=== PATIENT | female | born 1975 | race Caucasian/White ===

== ENCOUNTER 2016-09-12 09:30 | Emergency (ER) | payer BC ==
[~2016-09-12] VITALS: Ht 160 cm; Wt 91.0 kg
[2016-09-12 09:34] VITALS: Ht 160 cm; Wt 91.0 kg
[2016-09-12] MEDS ORDERED: SOD CHLORIDE 0.9% 1,000 ML IV STA (10:44)
[2016-09-12] MEDS ORDERED: ONDANSETRON 4 MG INJ IV STA (10:44)
[2016-09-12 11:00] LABS: URINE BLOOD (Dip) POC Trace-lysed (NEGATIVE)
[2016-09-12] MEDS ORDERED: MECLIZINE 12.5 MG TAB PO ONE (11:00)
[2016-09-12 11:20] LABS: ADD SCAN DIFF NO
[2016-09-12 11:23] LABS: BASOPHILS % 0.5 % (0.0-2.0); EOSINOPHILS # 0.1 10^3/ul (0.0-0.5); EOSINOPHILS % 0.9 % (0.0-7.0); HEMATOCRIT 45.6 % (37.0-47.0); HEMOGLOBIN 14.5 g/dl (12.0-16.0); LYMPHOCYTES % 23.1 % (15.0-51.0); MEAN CORPUSCULAR HEMOGLOBIN 27.7 pg (29.0-33.0); MEAN CORPUSCULAR HGB CONC 31.8 g/dl (32.0-37.0); MONOCYTE # 0.4 10^3/ul (0.3-0.9); MONOCYTES % 4.4 % (0.0-11.0); NEUTROPHIL # 6.1 10^3/ul (1.6-7.5); NEUTROPHILS % 70.8 % (39.0-77.0); PLATELET COUNT 284 10^3/UL (140-415); RED BLOOD COUNT 5.24 10^6/ul (4.20-5.40); RED CELL DISTRIBUTION WIDTH 13.2 % (11.5-14.5); WHITE BLOOD COUNT 8.7 10^3/ul (4.8-10.8)
[2016-09-12 11:51] LABS: CHLORIDE 99 mmol/L (97-110); POTASSIUM 3.7 mmol/L (3.5-5.1); SODIUM 141 mmol/L (135-144)
[2016-09-12] MEDS ORDERED: ACETAMINOPHEN 500 MG TAB PO STA (11:52)
[2016-09-12 11:54] LABS: ANION GAP 20 (8-16); BLOOD UREA NITROGEN 11 mg/dl (7-20); CALCIUM 9.5 mg/dl (8.4-10.2); CARBON DIOXIDE 26 mmol/L (21-31); CREATININE 0.68 mg/dl (0.44-1.00); GLUCOSE 97 mg/dl (70-220)
[2016-09-12] MEDS ORDERED: morphine 2 MG INJ IV ONE (12:00)
[2016-09-12 12:13] LABS: TROPONIN-I < 0.012 ng/ml (0.00-0.12)
[2016-09-12] MEDS ORDERED: IBUP-1542 PO (12:53)
[2016-09-12] MEDS ORDERED: NITR-58 PO (12:53)
--- NOTE | 2016-09-12 13:00 | ERD ---
ER Documentation Chief Complaint Date/Time DATE: 09/12/16 TIME: 12:55 Chief Complaint HEADCAHE , DIZZINESS , NAUSEA X 3 DAYS HPI Patient is a 41-year-old female who presents to the emergency department with numerous concerns including chest pain, headache, dizziness and nausea. Patient states her headache started 3 days ago. Patient describes the pain to be and her frontal area and radiating down the right side of her head. Patient states her current pain level is a 5 out of 10. Patient reports pain to be getting gradually worse. Patient denies sudden onset of headache. Patient states she did take Advil which did alleviate her pain. Patient reports nausea and vomiting. Patient denies any photophobia, phonophobia, loss of consciousness. Patient denies any neck pain or neck stiffness. Patient states her chest pain started this morning. Patient describes the pain to be in her left chest radiating to her left shoulder. Patient denies any shortness of breath. Patient denies any pain with deep inspiration. Patient states that she does feel as if the room is spinning. Patient denies any syncopal episodes. Denies any dysuria, diarrhea. Patient report patient does report her menstrual periods being irregular. Patient states she has been having heavy bleeding over the last few days. She denies any recent travel. No sick contacts. ROS All systems reviewed and are negative except as per history of present illness. Medications Home Meds Active Scripts Ibuprofen* (Motrin*) 600 Mg Tab, 600 MG PO Q6, #30 TAB Prov:ANGELLA PAEZ PA-C 09/12/16 Nitrofurantoin Monohyd Macrocr* (Macrobid*) 100 Mg Capsr, 100 MG PO BID for 5 Days, CAP Prov:ANGELLA PAEZ PA-C 09/12/16 Allergies Allergies: Coded Allergies: No Known Allergy (Unverified , 03/01/14) PMhx/Soc Medical and Surgical Hx: pt denies Medical Hx, pt denies Surgical Hx Hx Alcohol Use: No Hx Substance Use: No Hx Tobacco Use: No Smoking Status: Never smoker FmHx Family History: No diabetes Physical Exam Vitals Vital Signs Date Time Temp Pulse Resp B/P Pulse Ox O2 Delivery O2 Flow Rate FiO2 09/12/16 13:54 98.8 72 18 105/60 100 Room Air 09/12/16 09:34 98.8 88 18 156/88 99 Physical Exam GENERAL: Well-developed, well-nourished female. Appears in no acute distress. Speaking in full sentences. HEAD: Normocephalic, atraumatic. No deformities or ecchymosis. EYE: Pupils equal, round, and reactive to light. EOMs intact. No conjunctival erythema. No eye discharge. ENT: External ear without any masses or tenderness. Auditory canals clear bilaterally. TM visualized bilaterally, non-erythematous, non-bulging. Nasal mucosa pink with no discharge. Oropharynx is pink without any tonsillar erythema or exudates. No uvula deviation. No kissing tonsils. NECK: Supple. No meningismus. Normal ROM of the neck. No neck stiffness noted. LUNG: Clear to auscultation bilaterally. No rhonchi, wheezing, rales or coarse breath sounds. HEART: Regular rate and rhythm. No murmurs, rubs or gallops. ABDOMEN: Soft, nontender, and nondistended. Positive bowel sounds in all four quadrants. No rebound tenderness, no guarding. (-) McBurney's point tenderness. No CVA tenderness. BACK: No midline tenderness. EXTREMITES: Equal pulses bilaterally. No peripheral clubbing, cyanosis or edema. No unilateral leg swelling. NEUROLOGIC: Alert and oriented x3, cooperative. Mood and affect appropriate to situation. Cranial nerves II through XII are grossly intact. Normal speech. Motor exam: 5/5 strength in upper and lower extremities. Sensory exam: Sensation intact to light touch on all four extremities. Cerebellar function exam: No dysmetria on [id number] test. Steady gait. No pronator drift. SKIN: Normal color. Warm and dry. No rashes or lesions. Result Diagram: 09/12/16 1100 09/12/16 1100 Results 24 hrs Laboratory Tests Test 09/12/16 11:00 09/12/16 11:01 White Blood Count 8.710^3/ul Red Blood Count 5.2410^6/ul Hemoglobin 14.5g/dl Hematocrit 45.6% Mean Corpuscular Volume 87.0fl Mean Corpuscular Hemoglobin 27.7pg Mean Corpuscular Hemoglobin Concent 31.8g/dl Red Cell Distribution Width 13.2% Platelet Count 90653^3/UL Mean Platelet Volume 10.0fl Neutrophils % 70.8% Lymphocytes % 23.1% Monocytes % 4.4% Eosinophils % 0.9% Basophils % 0.5% Nucleated Red Blood Cells % 0.0/100WBC Neutrophils # 6.110^3/ul Lymphocytes # 2.010^3/ul Monocytes # 0.410^3/ul Eosinophils # 0.110^3/ul Basophils # 0.010^3/ul Nucleated Red Blood Cells # 0.010^3/ul Sodium Level 141mmol/L Potassium Level 3.7mmol/L Chloride Level 99mmol/L Carbon Dioxide Level 26mmol/L Anion Gap 20 Blood Urea Nitrogen 11mg/dl Creatinine 0.68mg/dl Glucose Level 97mg/dl Calcium Level 9.5mg/dl Troponin I < 0.012ng/ml Bedside Urine pH (LAB) 7.0 Bedside Urine Protein (LAB) Negative Bedside Urine Glucose (UA) Negative Bedside Urine Ketones (LAB) Negative Bedside Urine Blood Trace-lysed Bedside Urine Nitrite (LAB) Negative Bedside Urine Leukocyte Esterase (L 1+ Current Medications Medications (Trade) Dose Ordered Sig/Kwan Route PRN Reason Start Time Stop Time Status Last Admin Dose Admin Sodium Chloride (NS) 1,000 ml @ 1,000 mls/hr Q1H STAT IV 09/12/16 10:44 09/12/16 11:43 DC 09/12/16 11:06 Meclizine HCl (Antivert) 25 mg ONCE ONCE PO 09/12/16 11:00 09/12/16 11:01 DC 09/12/16 11:09 Ondansetron HCl (Zofran Inj) 4 mg ONCE STAT IV 09/12/16 10:44 09/12/16 10:49 DC 09/12/16 11:09 Morphine Sulfate (morphine) 2 mg ONCE ONCE IV 09/12/16 12:00 09/12/16 12:00 DC Acetaminophen (Tylenol Tab) 1,000 mg ONCE STAT PO 09/12/16 11:52 09/12/16 11:53 DC 09/12/16 11:58 Procedures/MDM ED COURSE: The patient was stable throughout ED course. I kept the patient and/or family informed of laboratory and diagnostic imaging results throughout the ED course. EKG: Read by Dr. Crocker, attending physician. EKG shows normal sinus rhythm at a rate of 80 bpm No arrhythmias, acute ST elevations or T wave changes were noted. MEDICATIONS GIVEN: IV fluids, Zofran, meclizine, Tylenol Patient tolerated medication well with no adverse reactions. Patient reported improvement in pain. MEDICAL DECISION MAKING: This is a 41-year-old female who presents to the emergency department with numerous concerns including chest pain, headache, dizziness and nausea. Vital signs were reviewed. Patient was afebrile. Patient was not hypoxic. Cardiac exam was normal. Lung exam was normal. EKG was within normal limits. Troponin was negative. Low suspicion for acute coronary syndrome, arrhythmia, pericarditis, pneumothorax, pneumonia. Full neuro exam was normal. Patient's headache and dizziness is likely due to tension vs migraine headache. Low suspicion for intracranial hemorrhage, cerebral infarct, intracranial mass, multiple sclerosis, idiopathic intracranial hypertension, meningitis, encephalitis. Urine dip showed 1+ leukocyte esterase. Patient also likely has a UTI. Low suspicion for pyelonephritis, nephrolithiasis. PRESCRIPTIONS: Ibuprofen, Macrobid DISCHARGE: At this time, patient is stable for discharge and outpatient management. I have instructed the patient to follow-up with his/her primary care physician in 1-2 days. If symptoms persist, patient may need to see a specialist for further examinations and testing. I have instructed the patient to promptly return to the ER at any time for any new or worsening symptoms including increased increased pain, fever, nausea, vomiting, numbness, weakness, diaphoresis or LOC. The patient and/or family expressed understanding of and agreement with this plan. All questions were answered. Home care instructions were provided. Departure Diagnosis: Primary Impression: UTI (urinary tract infection) Urinary tract infection type: site unspecified Hematuria presence: without hematuria Qualified Code: N39.0 - Urinary tract infection without hematuria, site unspecified Additional Impressions: Chest pain Chest pain type: unspecified Qualified Code: R07.9 - Chest pain, unspecified type Headache Headache type: unspecified Headache chronicity pattern: unspecified pattern Intractability: not intractable Qualified Code: R51 - Nonintractable headache, unspecified chronicity pattern, unspecified headache type Condition: Stable Patient Instructions: Understanding Urinary Tract Infections (UTIs), Chest Pain , Uncertain Cause Additional Instructions: Call your primary care doctor TOMORROW for an appointment during the next 1-2 days.See the doctor sooner or return here if your condition worsens before your appointment time. ANGELLA PAEZ PA-C September 12, 2016 13:00 Departure Diagnosis: Primary Impression: UTI (urinary tract infection) Urinary tract infection type: site unspecified Hematuria presence: without hematuria Qualified Code: N39.0 - Urinary tract infection without hematuria, site unspecified Additional Impressions: Chest pain Chest pain type: unspecified Qualified Code: R07.9 - Chest pain, unspecified type Headache Headache type: unspecified Headache chronicity pattern: unspecified pattern Intractability: not intractable Qualified Code: R51 - Nonintractable headache, unspecified chronicity pattern, unspecified headache type Condition: Stable Patient Instructions: Understanding Urinary Tract Infections (UTIs), Chest Pain , Uncertain Cause Additional Instructions: Call your primary care doctor TOMORROW for an appointment during the next 1-2 days.See the doctor sooner or return here if your condition worsens before your appointment time. ANGELLA PAEZ PA-C September 12, 2016 13:00
[2016-09-12 13:54] VITALS: BP 105/60; PULSE 72; RESP 18; TEMP 98.8
== END 2016-09-12 13:56 | disposition home or self-care (01) ==
LOC: FTE 09:30
DX: N39.0 Urinary tract infection, site not specified (principal); R07.9 Chest pain, unspecified; R11.2 Nausea with vomiting, unspecified
CPT/HCPCS: 80048; 81003; 84484; 85025; 93005; 96374; J2405; J7030; Z7502; Z7610